=== PATIENT | female | born 1990 ===

== ENCOUNTER 2021-04-26 14:11 | Emergency (ER) | payer BC ==
[2021-04-26] MEDS ORDERED: Albuterol 0.083% 2.5 MG/3 ML Neb Soln NEB ONE (15:55)
--- NOTE | 2021-04-26 16:37 | EDM.PDOC ---
ED HPI GENERAL MEDICAL PROBLEM - General Chief Complaint: Respiratory Problem Stated Complaint: CHANTELL SX Time Seen by Provider: 04/26/21 14:47 Source of Information: Reports: Patient History Limitations: Reports: No Limitations - History of Present Illness INITIAL COMMENTS - FREE TEXT/NARRATIVE: 30-year-old female presents the emergency department with complaints of headache, shortness of breath, and cough that started yesterday. Patient denies any nausea, vomiting or diarrhea. She states she did have some vomiting over Labor Day weekend however that seems to have resolved. She does carry a history of hypothyroidism, diabetes, bipolar disorder and anxiety. She also has a history of asthma for which she states she uses several different nebulizers and inhalers. She smokes 1/2 pack a day for the past 14 years. Her primary care provider is Belinda Burt. Treatments AUTO STRIPER: Reports: Other (see below) Other Treatments AUTO STRIPER: motrin Throat Pain Score (Numeric/FACES): 8 Headache Pain Score (Numeric/FACES): 9 Generalized Pain Score (Numeric/FACES): 8 - Related Data Allergies Allergy/AdvReac Type Severity Reaction Status Date / Time No Known Allergies Allergy Verified 02/21/19 16:23 Home Meds: Home Meds Levothyroxine 175 mcg PO DAILY 02/21/19 [History] lamoTRIgine [Lamotrigine] 250 mg PO DAILY 02/21/19 [History] Albuterol Sulfate [Proventil Hfa] 2 puff INH ASDIRECTED 04/26/21 [History] Albuterol/Ipratropium [DuoNeb 3.0-0.5 MG/3 ML] 1 applic INH ASDIRECTED 04/26/21 [History] Gabapentin [Neurontin] 300 mg PO TID 04/26/21 [History] predniSONE [Prednisone] 20 mg PO DAILY #5 tablet 04/26/21 [Rx] Past Medical History Respiratory History: Reports: Asthma, Pneumonia, Recurrent Musculoskeletal History: Reports: Gout Psychiatric History: Reports: Anxiety, Bipolar Endocrine/Metabolic History: Reports: Diabetes, Type II, Hypothyroidism Other Endocrine/Metabolic History: diabetes controlled by pt-not on meds - Infectious Disease History Infectious Disease History: Reports: Pertussis (Whooping Cough) Social & Family History - Tobacco Use Tobacco Use Status *Q: Current Every Day Tobacco User Years of Tobacco use: 14 Packs/Tins Daily: 0.5 - Caffeine Use Caffeine Use: Reports: Coffee, Soda, Tea Other Caffeine Use: coffee occassionally - Recreational Drug Use Recreational Drug Use: No ED ROS GENERAL - Review of Systems Review Of Systems: Comprehensive ROS is negative, except as noted in HPI. ED EXAM, GENERAL - Physical Exam Exam: See Below Exam Limited By: No Limitations General Appearance: Alert, WD/WN, No Apparent Distress Ears: Normal External Exam, Hearing Grossly Normal Nose: Normal Inspection Throat/Mouth: Normal Inspection, Normal Lips, Normal Voice, No Airway Compromise Head: Atraumatic Neck: Normal Inspection, Supple Respiratory/Chest: No Respiratory Distress, Normal Breath Sounds, No Accessory Muscle Use, Chest Non-Tender, Wheezing (Expiratory wheezes noted posteriorly in all lung domingo) Cardiovascular: Normal Peripheral Pulses, Regular Rate, Rhythm, No Edema, No Murmur Peripheral Pulses: 2+: Radial (L), Radial (R) GI/Abdominal: Normal Bowel Sounds, Soft, Non-Tender, No Distention (Female) Exam: Deferred Rectal (Female) Exam: Deferred Back Exam: Normal Inspection Extremities: Normal Inspection Neurological: Alert, Oriented, Normal Cognition Psychiatric: Normal Affect, Normal Mood Skin Exam: Warm, Dry, Intact, Normal Color, No Rash Lymphatic: No Adenopathy Course - Vital Signs Text/Narrative:: As stated above, patient presents with Covid-like symptoms that started yesterday. Upon exam, patient has expiratory wheezes noted posteriorly. 2 saturations are 94% at the time of my exam and she is otherwise hemodynamically stable. She states she has not used any of her inhalers for over a year. I have ordered for her to receive an albuterol nebulizer treatment while in the emergency department as well as an incentive spirometer and Acapella. I have ordered a Covid swab on this patient. Last Recorded V/S: Last Vital Signs Temp 96.4 F L 04/26/21 15:03 Pulse 96 04/26/21 15:03 Resp 20 04/26/21 15:03 BP 113/64 04/26/21 15:03 Pulse Ox 93 L 04/26/21 15:56 - Orders/Labs/Meds Orders: Active Orders 24 hr Category Date Time Status RT Aerosol Therapy [RC] ASDIRECTED Care 04/26/21 15:56 Active RT Incentive Spirometry [RC] ASDIRECTED Care 04/26/21 15:56 Active RT Acapella [RESPCARE] Stat Oth 04/26/21 15:56 Active Labs: Laboratory Tests 04/26/21 Range/Units 15:00 SARS-CoV-2 RNA (LB) Negative (NEGATIVE) Meds: Medications Discontinued Medications Generic Name Dose Route Start Last Admin Trade Name César PRN Reason Stop Dose Admin Albuterol 2.5 mg 04/26/21 15:55 04/26/21 16:13 Albuterol 0.083% 2.5 Mg/3 Ml Neb Soln NEB 04/26/21 15:56 2.5 mg ONETIME ONE Administration - Re-Assessments/Exams Free Text/Narrative Re-Assessment/Exam: 04/26/21 16:29 Patient's Covid swab is negative. She will be discharged home recommending that she quarantine for the next 10 days. Due to the symptoms starting just yesterday it may be too early to obtain a positive result. We will recommend that she use her nebulizers and inhalers as well. We will give her a prescription for prednisone 20 mg daily for the next 5 days. Departure - Departure Time of Disposition: 16:31 Disposition: Home, Self-Care 01 Condition: Good Clinical Impression: Exacerbation of asthma Qualifiers: Asthma severity: mild Asthma persistence: unspecified Qualified Code(s): J45.901 - Unspecified asthma with (acute) exacerbation - Discharge Information Prescriptions: predniSONE [Prednisone] 20 mg PO DAILY #5 tablet Referrals: Bria Williamson, DICE PERSON [Primary Care Provider] - Additional Instructions: You were seen in the emergency department today with complaints of headache shortness of breath and cough. Your lung sounds did have wheezes noted in all [place] and so you received an albuterol nebulizer treatment while in the emergency department. Recommend that you start to use your inhalers and nebulizers at home at this time as prescribed. I have sent prescription up to [facility] pharmacy for prednisone. You will take 20 mg daily for the next 5 days. Recommend that you quarantine for 10 days time and be retested for Covid in about 5 days time. Also recommend that you do receive your Covid vac cine. You can receive the vaccine 5 weeks after a Covid positive test. Sepsis Event Note (ED) - Focused Exam Vital Signs: Vital Signs Temp Pulse Resp BP Pulse Ox Pulse Ox 04/26/21 15:56 93 L 04/26/21 15:03 96.4 F L 96 20 113/64 90 L - My Orders Last 24 Hours: My Active Orders 04/26/21 15:56 RT Aerosol Therapy [RC] ASDIRECTED RT Incentive Spirometry [RC] ASDIRECTED RT Acapella [RESPCARE] Stat - Assessment/Plan Last 24 Hours: My Active Orders 04/26/21 15:56 RT Aerosol Therapy [RC] ASDIRECTED RT Incentive Spirometry [RC] ASDIRECTED RT Acapella [RESPCARE] Stat
== END 2021-04-26 17:05 | disposition home or self-care (01) ==
LOC: JD.ED 14:11
DX: J45.901 Unspecified asthma with (acute) exacerbation (principal); E03.9 Hypothyroidism, unspecified; E11.9 Type 2 diabetes mellitus without complications; Z72.0 Tobacco use; Z79.899 Other long term (current) drug therapy; Z20.822 Contact with and (suspected) exposure to COVID-19
CPT/HCPCS: 94640; 94667; 99283; 99285-25; U0002